=== PATIENT | female | born 1950 | race Caucasian/White ===

== ENCOUNTER 2021-07-16 11:24 | Observation (INO) ==
[~2021-07-16 11:24] MED LIST: Buffered Lidocaine 1% SYRIN 1 ml INTRADERM ONE; Famotidine IV 10 MG/ML 2 ml VIAL (20 mg) IV ONE; Lactated Ringers 1000 ml BAG 1,000 ML IV SCH; ROPIVACAINE 5 MG/ML 30 ML BTL (0.5%) ONE
[2021-07-16] MEDS ORDERED: Famotidine IV 10 MG/ML 2 ml VIAL (20 mg) ONE (11:53)
[2021-07-16] MEDS ORDERED: ceFAZolin 2 GM in NS PREMIX 2 GM/100 ML BAG IVPB ONE (11:53)
[2021-07-16] MEDS ORDERED: Ondansetron 4 mg VIAL 2 MG/ML 2 ml VIAL ONE (12:21)
[2021-07-16] MEDS ORDERED: Propofol 10 MG/ML 20 ML BTL ONE (12:21)
[2021-07-16] MEDS ORDERED: Lidocaine 2% PF 5 ML VIAL ONE ×2 (12:21→13:55)
[2021-07-16] MEDS ORDERED: Ketamine HCL 50 mg/ml 10 ml VIAL (500 MG) ONE (12:21)
[2021-07-16] MEDS ORDERED: Midazolam 5 mg/5 ml VIAL 1 mg/ml 5 ml VIAL (5 mg) ONE (13:54)
[2021-07-16] MEDS ORDERED: fentaNYL 100 mcg/2 ml 50 MCG/ML VIAL ONE (13:55)
[2021-07-16] MEDS ORDERED: ROPIVACAINE 5 MG/ML 30 ML BTL (0.5%) ONE (13:55)
[2021-07-16] MEDS ORDERED: diPHENhydraMINE IV 50 MG/ML 1 ml VIAL (BENADRYL) IV PRN (15:56)
[2021-07-16] MEDS ORDERED: Magnesium Hydroxide LIQ 30 ML UDC PO PRN (15:56)
[2021-07-16] MEDS ORDERED: Morphine 2 MG/ML SYRINGE IV PRN (15:56)
[2021-07-16] MEDS ORDERED: Ondansetron 4 mg VIAL 2 MG/ML 2 ml VIAL IV PRN ×2 (15:56→16:34)
[2021-07-16] MEDS ORDERED: Lactulose 30 ml UDC PO PRN (15:56)
[2021-07-16] MEDS ORDERED: diPHENhydraMINE 25 mg TAB PO PRN (15:56)
[2021-07-16] MEDS ORDERED: Ondansetron ODT 4 mg TAB 4 MG TAB PO PRN (15:56)
[2021-07-16] MEDS ORDERED: HYDROmorphone 1 MG/1 ML SYRINGE IV PRN (16:34)
[2021-07-16] MEDS ORDERED: fentaNYL 100 mcg/2 ml 50 MCG/ML VIAL IV PRN (16:34)
[2021-07-16] MEDS ORDERED: Naloxone 0.4 mg VIAL 0.4 mg/ml 1 ml VIAL IV PRN (16:34)
[2021-07-16] MEDS: Lactated Ringers 1000 ml BAG 1,000 ML IV SCH (18:37)
[2021-07-16] MEDS: Magnesium Hydroxide LIQ 30 ML UDC PO SCH (20:25)
[2021-07-16] MEDS: ceFAZolin 1 GM ADVAN 1 GM in NS 0.9% 50 ML 50 ML IVPB SCH (23:50)
[2021-07-17] MEDS: Lactated Ringers 1000 ml BAG 1,000 ML IV SCH (05:04)
[2021-07-17 07:12] LABS: Hematocrit 34 % (35-47); Hemoglobin 11.3 g/dL (12.0-16.0); Mean Platelet Volume 8.9 fL (7.4-10.4); Platelet Count 177 10^3/uL (150-450)
[2021-07-17] MEDS: ceFAZolin 1 GM ADVAN 1 GM in NS 0.9% 50 ML 50 ML IVPB SCH ×2 (07:17→15:02)
[2021-07-17 07:27] LABS: Calcium 8.3 mg/dL (8.6-10.3); EGFR African American 103.2 (>60); EGFR Non-African American 85.3 (>60); Potassium 4.5 mmol/L (3.5-5.0)
[2021-07-17] MEDS: Magnesium Hydroxide LIQ 30 ML UDC PO SCH (08:43)
[2021-07-17] MEDS: DEXTROAMPHETAMINE 10 MG PO SCH ×2 (08:58→11:18)
[2021-07-17] MEDS ORDERED: Aspirin EC 325 mg TAB.EC PO SCH (09:00)
[2021-07-17] MEDS ORDERED: CLONAZEPAM 0.25 MG PO SCH (09:00)
[2021-07-17] MEDS ORDERED: Vitamin THERAPEUTIC TAB PO SCH (09:00)
[2021-07-17 11:19] VITALS: BP 121/58
== END 2021-07-17 16:20 | disposition home or self-care (01) ==
LOC: AA 11:24 → INTOOBSV 11:24 → SSU 18:29
PROVIDERS: ADMIT Orthopaedic Surgery Adult Reconstructive Orthopaedic Surgery; ATTEND Orthopaedic Surgery Adult Reconstructive Orthopaedic Surgery